=== PATIENT | female | born 1955 | race American Indian/Alaskan Native ===

== ENCOUNTER 2017-03-07 10:49 | Outpatient (CLI) | payer OTHER ==
--- NOTE | 2017-03-07 14:08 | Mammography Report ---
BILATERAL MAMMOGRAM with CAD: HISTORY:Cancer screening. Comparison study is dated February 11, 2016. FINDINGS: The breasts are almost entirely fat (<25% glandular). No mass, distortion, suspicious calcification, or skin change is seen. IMPRESSION: Negative mammogram. There is no mammographic evidence of malignancy. RECOMMENDATION: Follow-up per ACS guidelines. BI-RADS CATEGORY: 1 = Negative ACR BI-RADS MAMMOGRAPHIC CODES: 0 = Needs additional imaging evaluation; 1 = Negative; 2 = Benign; 3 = Probably benign; 4 = Suspicious; 5 = Malignant; 6 = Known biopsy-proven malignancy COMMENT: 1. Dense breast tissue, i.e., adenosis, fibrocystic changes, etc., may obscure an underlying neoplasm. 2. Approximately 10% of cancers are not detected with mammography. 3. A negative mammography report should not delay biopsy if a clinically suspicious mass is present. COMMENT: Patient follow-up letters are generated in [employer].
== END 2017-03-07 10:50 | disposition home or self-care (01) ==
LOC: MAMMO 10:49
PROVIDERS: ATTEND Family Medicine
DX: Z12.31 Encounter for screening mammogram for malignant neoplasm of breast (principal)
CPT/HCPCS: 77067; G0202

== ENCOUNTER 2018-07-04 10:56 | Outpatient (CLI) | payer OTHER ==
--- NOTE | 2018-07-04 16:10 | Mammography Report ---
BILATERAL DIGITAL SCREENING MAMMOGRAM with CAD: 07/04/18 10:56:00 CLINICAL: Routine screening. COMPARISON:07/04/18 FINDINGS: The breasts are almost entirely fatty. No mass, architectural distortion or suspicious calcifications. IMPRESSION: No mammographic evidence of malignancy. BI-RADS CATEGORY: 1 - - Negative RECOMMENDATION: Routine mammographic screening in one year. COMMENT: Patient follow-up letters are generated by our [employer] application.
== END 2018-07-04 10:57 | disposition home or self-care (01) ==
LOC: MAMMO 10:56
PROVIDERS: ATTEND Family Medicine
DX: Z12.31 Encounter for screening mammogram for malignant neoplasm of breast (principal); I10 Essential (primary) hypertension; J45.909 Unspecified asthma, uncomplicated; E11.9 Type 2 diabetes mellitus without complications; Z87.891 Personal history of nicotine dependence
CPT/HCPCS: 77067

== ENCOUNTER 2021-01-30 10:27 | Emergency (ER) | payer MEDICARE ==
[2021-01-30 10:46] VITALS: BP 140/85
[2021-01-30] MEDS ORDERED: ACETAMINOPHEN 325 MG TAB PO ONE (11:03)
--- NOTE | 2021-01-30 11:07 | Emergency Department Report ---
ED Lower Extremity HPI - General Chief Complaint: Fall Stated Complaint: FALL X 1 DAY/LEFT KNEE PAIN Time Seen by Provider: 01/30/21 11:01 Source: patient Mode of arrival: Ambulatory Limitations: No Limitations - History of Present Illness Initial Comments: 65-year-old female reports no past medical history presents but HTN, asthma and DM is listed on her PMHX presents to the ER today with complaints of left knee injury. Patient states that she was walking down a flight of steps in her house towards the garage when she slipped and slid down the steps. Patient states that she was on the top step, but she landed on her left knee on the third step. She states that she was able to grab onto the rail. She denies any head injury. She complains of knee pain mainly to the anterior medial aspect of the knee with associated swelling. Reports worsening pain with ambulation, weightbearing and flexion. She states that she has not taken anything for the pain. She denies any prior issues with the left knee. She reports no other symptoms at this time. Complaint: knee injury -: Sudden - Related Data Home Medications Medication Instructions Recorded Confirmed Last Taken Aspirin BABY CHEW TAB 81 mg PO DAILY 05/25/16 05/25/16 05/18/16 Hydrochlorothiazide 12.5 mg PO DAILY 05/25/16 05/25/16 05/25/16 Lisinopril 10 mg PO DAILY 05/25/16 05/26/16 05/26/16 ProAir HFA Inhaler 90 mcg INHALATION DAILY 05/25/16 05/26/16 05/26/16 Zoloft 25 mg PO DAILY 05/25/16 05/25/16 05/25/16 metFORMIN 1,000 mg PO BID 05/25/16 05/25/16 05/25/16 Previous Rx's Medication Instructions Recorded Last Taken Type Naproxen 500 mg PO Q12HR PRN #20 tablet 01/30/21 Unknown Rx Allergies Allergy/AdvReac Type Severity Reaction Status Date / Time hydrocodone AdvReac Intermediate Shortness Verified 05/24/16 11:55 of Breath ED Review of Systems ROS: Stated complaint: FALL X 1 DAY/LEFT KNEE PAIN Other details as noted in HPI Comment: All other systems reviewed and negative Constitutional: no symptoms reported Eyes: denies: eye pain, eye discharge, vision change ENT: denies: ear pain, throat pain Respiratory: denies: cough, shortness of breath, wheezing Cardiovascular: denies: chest pain, palpitations Gastrointestinal: denies: abdominal pain, nausea, vomiting, diarrhea, constipation, hematemesis, melena, hematochezia Genitourinary: as per HPI Musculoskeletal: joint swelling, arthralgia Skin: denies: rash, lesions Neurological: denies: headache, weakness, numbness, paresthesias, confusion, abnormal gait, vertigo Psychiatric: denies: anxiety, depression Hematological/Lymphatic: denies: easy bleeding, easy bruising ED Past Medical Hx - Past Medical History Hx Hypertension: Yes Hx Diabetes: Yes Hx Asthma: Yes - Social History Smoking Status: Never Smoker - Medications Home Medications: Home Medications Medication Instructions Recorded Confirmed Last Taken Type Aspirin BABY CHEW TAB 81 mg PO DAILY 05/25/16 05/25/16 05/18/16 History Hydrochlorothiazide 12.5 mg PO DAILY 05/25/16 05/25/16 05/25/16 History Lisinopril 10 mg PO DAILY 05/25/16 05/26/16 05/26/16 History ProAir HFA Inhaler 90 mcg INHALATION DAILY 05/25/16 05/26/16 05/26/16 History Zoloft 25 mg PO DAILY 05/25/16 05/25/16 05/25/16 History metFORMIN 1,000 mg PO BID 05/25/16 05/25/16 05/25/16 History Naproxen 500 mg PO Q12HR PRN #20 tablet 01/30/21 Unknown Rx ED Physical Exam - General Limitations: No Limitations General appearance: alert, in no apparent distress - Head Head exam: Present: atraumatic, normocephalic, normal inspection - Eye Eye exam: Present: normal appearance, PERRL, EOMI Pupils: Present: normal accommodation - ENT ENT exam: Present: normal exam, mucous membranes moist - Neck Neck exam: Present: normal inspection, full ROM - Respiratory Respiratory exam: Present: normal lung sounds bilaterally. Absent: respiratory distress - Cardiovascular Cardiovascular Exam: Present: regular rate, normal rhythm, normal heart sounds - Expanded Lower Extremity Exam Left Knee exam: Present: normal inspection, tenderness (Moderate tenderness to palpation to the medial aspect of the left knee. Mild tenderness to the anterior aspect of the left knee.), swelling (Anterior medial aspect of the left knee), full knee extension. Absent: full ROM (Flexion of the left knee limited to about 90 degrees.), abrasion, laceration, ecchymosis, deformity, crepidus, dislocation, erythema, effusion Neuro vascular tendon exam: Present: no vascular compromise Gait: Positive: observed and limited by pain - Neurological Exam Neurological exam: Present: alert, oriented X3, CN II-XII intact - Psychiatric Psychiatric exam: Present: normal affect, normal mood - Skin Skin exam: Present: intact ED Course Vital Signs 01/30/21 10:43 Temperature 99.1 F Pulse Rate 86 Respiratory 18 Rate Blood Pressure 140/85 O2 Sat by Pulse 99 Oximetry ED Lower Extremity MDM - Radiology Data Radiology results: report reviewed Patient: HERNAN CAUSEY MR#: [id number] : 1955 Acct:[id number] Age/Sex: 65 / F ADM Date: 01/30/21 Loc: ED Attending Dr: Ordering Physician: MARLO PABLO Date of Service: 01/30/21 Procedure(s): XR knee 3V LT Accession Number(s): [id number] cc: MARLO PABLO Fluoro Time In Minutes: Left knee 3 views INDICATION: Knee injury FINDINGS: There is tricompartmental degenerative osteoporosis most significant at patellofemoral joint. Small joint effusion. No acute fracture. Signer Name: Jose Brar MD Signed: 01/30/2021 11:51 AM Workstation Name: [id number] Transcribed By: CW Dictated By: LISA BRAR MD Electronically Authenticated By: LISA BRAR MD Signed Date/Time: 01/30/21 115 DD/ 1151 TD/TT: Critical care attestation.: If time is entered above; I have spent that time in minutes in the direct care of this critically ill patient, excluding procedure time. ED Disposition Clinical Impression: Contusion of knee, left, Knee effusion, left, Left knee DJD Disposition: - TO HOME OR SELFCARE Is pt being admited?: No Does the pt Need Aspirin: No Condition: Stable Instructions: Knee Effusion, [id number], Arthritis, [id number], Contusion Additional Instructions: Rest, ice and elevate your leg for the next 2 to 3 days. Recommend that you take the naproxen as prescribed for pain. You can also alternate with Tylenol. Follow-up with recruiting specialist in 1 week if your symptoms persist. Return to the ER if symptoms changes or worsens in any way. Prescriptions: Naproxen 500 mg PO Q12HR PRN #20 tablet PRN Reason: Pain Referrals: KADEEM BAUGH MD [Staff Physician] - 7-10 days Time of Disposition: 12:12
--- NOTE | 2021-01-30 11:56 | XRay Report ---
Left knee 3 views INDICATION: Knee injury FINDINGS: There is tricompartmental degenerative osteoporosis most significant at patellofemoral join t. Small joint effusion. No acute fracture. Signer Name: Jose Brar MD Signed: 01/30/2021 11:51 AM Workstation Name: [id number]
== END 2021-01-30 14:08 | disposition home or self-care (01) ==
LOC: ED 10:27
DX: S80.02XA Contusion of left knee, initial encounter (principal); M17.12 Unilateral primary osteoarthritis, left knee; M25.462 Effusion, left knee; I10 Essential (primary) hypertension; E11.9 Type 2 diabetes mellitus without complications; J45.909 Unspecified asthma, uncomplicated; Z79.84 Long term (current) use of oral hypoglycemic drugs; Z79.899 Other long term (current) drug therapy; Z88.8 Allergy status to other drugs, medicaments and biological substances; W01.0XXA Fall on same level from slipping, tripping and stumbling without subsequent striking against object, initial encounter; Y93.89 Activity, other specified; Y92.89 Other specified places as the place of occurrence of the external cause; Y99.8 Other external cause status